=== PATIENT | male | born 1980 | race Caucasian/White ===

== ENCOUNTER 2018-03-22 09:39 | Emergency (ER) | payer OTHER ==
[2018-03-22 09:52] VITALS: BP 125/77
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
[2018-03-22 10:28] LABS: CHLORIDE,CL 110 mmol/L (98-107); SODIUM,NA 146 mmol/L (136-145)
== END 2018-03-22 13:55 ==
LOC: LL.ED 09:39
DX: R45.851 Suicidal ideations (principal); N30.00 Acute cystitis without hematuria; K21.9 Gastro-esophageal reflux disease without esophagitis; E03.9 Hypothyroidism, unspecified; M15.0 Primary generalized (osteo)arthritis; F17.290 Nicotine dependence, other tobacco product, uncomplicated; Z88.1 Allergy status to other antibiotic agents; Z79.899 Other long term (current) drug therapy
CPT/HCPCS: 36415; 80053; 80305-QW; 81001; 82150; 83690; 84443; 85025; 87086; 99285; G0480

== ENCOUNTER 2022-08-07 00:49 | Emergency (ER) | payer BC ==
[2022-08-07] MEDS: Aspirin 81 MG Tab.Chew PO ONE (01:22)
[2022-08-07] MEDS: Nitroglycerin 0.4 MG Tab.SL SL ONE ×3 (01:22→02:49)
[2022-08-07] MEDS: GI Cocktail Oral Solution 30 ML PO ONE (01:38)
[2022-08-07 01:40] LABS: ANION GAP 7.5 meq/L (7-15); CHLORIDE,CL 104 mmol/L (98-107); SODIUM,NA 140 mmol/L (136-145)
[2022-08-07 01:41] LABS: ESTIMATED GFR 78 mL/min (>=60)
[2022-08-07] MEDS: Morphine 2 MG/ML SYRINGE IVPUSH ONE (03:03)
[2022-08-07] MEDS: Sodium Chloride 0.9% 10 ML Syringe FLUSH PRN (03:04)
[2022-08-07 06:04] VITALS: BP 107/83; PULSE 60
== END 2022-08-07 06:24 | disposition home or self-care (01) ==
LOC: LL.ED 00:49
DX: R07.89 Other chest pain (principal); K21.9 Gastro-esophageal reflux disease without esophagitis; Z88.0 Allergy status to penicillin; Z79.899 Other long term (current) drug therapy
CPT/HCPCS: 36415; 71046; 80053; 82550; 84484; 85025; 93005; 96374; 99285-25; A9270-GY; J2270; J3490

== ENCOUNTER 2023-07-29 07:49 | Day surgery (SDC) | payer OTHER, BC ==
[2023-07-29] MEDS ORDERED: Lactated Ringers 1,000 ML IV SCH (08:00)
[2023-07-29] MEDS ORDERED: Sodium Chloride 0.9% 10 ML Syringe FLUSH PRN (08:00)
[2023-07-29] MEDS ORDERED: fentaNYL 100 MCG/2 ML SDV ONE (08:20)
[2023-07-29] MEDS ORDERED: Midazolam 1 MG/ML 2 ML SDV ONE (08:20)
[2023-07-29] MEDS ORDERED: Propofol 200 MG/20 ML SDV ONE (08:21)
[2023-07-29] MEDS ORDERED: Lidocaine 2% with EPINEPHrine 1:100,000 20 ML MDV INJECT ONE (09:40)
[2023-07-29] MEDS ORDERED: Bupivacaine 0.25% 10 ML SDV INJECT ONE (09:41)
[2023-07-29 11:43] VITALS: PULSE 70
[2023-07-29 12:22] VITALS: BP 120/76
== END 2023-07-29 12:45 | disposition home or self-care (01) ==
LOC: LL.SDS 07:49
PROVIDERS: ATTEND Surgery
DX: K40.90 Unilateral inguinal hernia, without obstruction or gangrene, not specified as recurrent (principal); F41.8 Other specified anxiety disorders; Z87.891 Personal history of nicotine dependence; Z79.899 Other long term (current) drug therapy; Z88.0 Allergy status to penicillin
CPT/HCPCS: C1781; J3490; J7120